=== PATIENT | male | born 1980 | race Caucasian/White ===

== ENCOUNTER 2019-05-04 15:07 | Emergency (ER) | payer SELFPAY ==
[2019-05-04] MEDS ORDERED: LIDOCAINE 1% MPF 30 ML VIAL ONE (16:37)
--- NOTE | 2019-05-04 17:26 | ER ---
Nurse's Notes [facility] Name: Pato Nazario Age: 38 yrs Sex: Male : 1980 Arrival Date: 05/04/2019 Time: 15:11 Bed 19 Private MD: Diagnosis: Cutaneous abscess of abdominal wall Presentation: 05/04 15:12 Presenting complaint: Abscess on abdomen x 3 days. Transition of care: patient was not hb received from another setting of care. Onset of symptoms was May 01, 2019. Risk Assessment: Do you want to hurt yourself or someone else? Patient reports no desire to harm self or others. Initial Sepsis Screen: Does the patient meet any 2 criteria? No. Patient's initial sepsis screen is negative. Does the patient have a suspected source of infection? No. Patient's initial sepsis screen is negative. Care prior to arrival: None. 15:12 Method Of Arrival: Ambulatory hb 15:12 Acuity: ADARSH 4 hb Historical: - Allergies: 15:13 No Known Allergies; hb - Home Meds: 15:13 None [Active]; hb - PMHx: 15:13 None; hb - PSHx: 15:13 None; hb - Immunization history:: Adult Immunizations up to date. - Social history:: Smoking status: Patient/guardian denies using tobacco. - Ebola Screening: : No symptoms or risks identified at this time. Screenin:10 Abuse screen: Denies threats or abuse. Denies injuries from another. Nutritional ca1 screening: No deficits noted. Tuberculosis screening: No symptoms or risk factors identified. Fall Risk None identified. Assessment: 16:10 General: Appears in no apparent distress. comfortable, Behavior is calm, cooperative, ca1 appropriate for age. Pain: Complains of pain in abdomen Pain currently is 7 out of 10 on a pain scale. Quality of pain is described as burning, Pain began 2-3 days ago. Is continuous. Neuro: Level of Consciousness is awake, alert, obeys commands, Oriented to person, place, time, situation, Appropriate for age. GI: No deficits noted. No signs and/or symptoms were reported involving the gastrointestinal system. Derm: Skin is intact, is healthy with good turgor, Skin is pink, warm \T\ dry. Abscess located on left upper quadrant is dime sized, has no drainage, is hot to touch, is red, is raised. Musculoskeletal: Circulation, motion, and sensation intact. Capillary refill < 3 seconds, Range of motion: intact in all extremities. 17:04 Reassessment: Patient appears in no apparent distress at this time. Patient is alert, ca1 oriented x 3, equal unlabored respirations, skin warm/dry/pink. Vital Signs: 15:13 BP 130 / 85; Pulse 76; Resp 16; Temp 97.9; Pulse Ox 100% on R/A; Weight 72.57 kg; hb Height 6 ft. (182.88 cm); Pain 6/10; 17:04 BP 121 / 76; Pulse 81; Resp 16 S; Pulse Ox 100% on R/A; ca1 15:13 Body Mass Index 21.70 (72.57 kg, 182.88 cm) hb ED Course: 15:11 Patient arrived in ED. mr 15:12 Triage completed. hb 15:13 Arm band placed on. hb 16:03 Niesha Ochoa RN is Primary Nurse. ca1 16:04 Yeison Nelson PA is PHCP. [facility] 16:04 Yung Bhandari MD is Attending Physician. [facility] 16:10 Patient has correct armband on for positive identification. Bed in low position. Call ca1 light in reach. Side rails up X 1. Pulse ox on. NIBP on. 16:10 Patient did not have IV access during this emergency room visit. ca1 17:03 Assist provider with I \T\ D: of an abscess on abdomen above the umbilical area Set up ca1 I\T\D tray. Performed by Yeison ZHAO Wound packed. iodoform gauze, Dressing with Neosporin and 4X4s, tape Patient tolerated well. 17:22 Sylvain Freed MD is Referral Physician. [facility] Administered Medications: 16:58 Drug: Lidocaine (1 %) 20 ml {Note: by PAVEL Latham.} Volume: 20 ml; Route: Infiltration; ca1 Outcome: 17:22 Discharge ordered by . [facility] 17:50 Discharged to home ambulatory. ca1 17:50 Condition: stable 17:50 Discharge instructions given to patient, Instructed on discharge instructions, follow up and referral plans. wound care, Demonstrated understanding of instructions, follow-up care, medications, wound care, Prescriptions given X 2. 17:57 Patient left the ED. ca1 Signatures: Yeison Nelson PA PA jmm Rivera, mr Mor, Mary Ann, RN RN hb AcNiesha aguilar, RN RN ca1
--- NOTE | 2019-05-04 17:27 | EDPHYS ---
Physician Documentation [facility] Name: Pato Nazario Age: 38 yrs Sex: Male : 1980 Arrival Date: 05/04/2019 Time: 15:11 Bed 19 Private MD: ED Physician Yung Bhandari HPI: 05/04 16:29 This 38 yrs old Male presents to ER via Ambulatory with complaints of Insect jmm Bite. 16:29 The patient presents with cellulitis of the abdomen. Onset: The symptoms/episode jmm began/occurred gradually, 3 day(s) ago. Possible cause(s): unknown. Associated signs and symptoms: Pertinent negatives: fever. Modifying factors: the symptoms are alleviated by nothing, the symptoms are aggravated by nothing. This is a 38 year old male with no chronic medical conditions that presents to the ED with complaints of redness and swelling beginning 3 days ago. Patient denies fever or chills. . Historical: - Allergies: 15:13 No Known Allergies; hb - Home Meds: 15:13 None [Active]; hb - PMHx: 15:13 None; hb - PSHx: 15:13 None; hb - Immunization history:: Adult Immunizations up to date. - Social history:: Smoking status: Patient/guardian denies using tobacco. - Ebola Screening: : No symptoms or risks identified at this time. ROS: 16:29 Constitutional: Negative for fever, chills, and weight loss, Cardiovascular: Negative jmm for chest pain, palpitations, and edema, Respiratory: Negative for shortness of breath, cough, wheezing, and pleuritic chest pain. 16:29 Skin: Positive for abscess. 16:29 All other systems are negative. Exam: 16:29 Constitutional: This is a well developed, well nourished patient who is awake, alert, jmm and in no acute distress. Head/Face: atraumatic. Eyes: EOMI, no conjunctival erythema appreciated ENT: Moist Mucus Membranes Neck: Trachea midline, Supple Chest/axilla: Normal chest wall appearance and motion. Cardiovascular: Regular rate and rhythm. No edema appreciated Respiratory: Normal respirations, no respiratory distress appreciated 16:29 Abdomen/GI: abscess noted to the abdomen. 16:29 Skin: erythema and swelling noted to the mid abdomen. 16:29 Neuro: Motor: is normal. 16:29 Psych: Behavior/mood is pleasant, cooperative. Vital Signs: 15:13 BP 130 / 85; Pulse 76; Resp 16; Temp 97.9; Pulse Ox 100% on R/A; Weight 72.57 kg; hb Height 6 ft. (182.88 cm); Pain 6/10; 17:04 BP 121 / 76; Pulse 81; Resp 16 S; Pulse Ox 100% on R/A; ca1 15:13 Body Mass Index 21.70 (72.57 kg, 182.88 cm) hb Procedures: 17:18 I \T\ D: Incision and drainage was performed for an abscess of the left upper quadrant jmm Prepped with Anesthetized with 5 ml's 1% Lidocaine. Incised with #11 blade. Drained large amount purulent fluid. Packed with iodoform gauze, Dressing: sterile 4x4 gauze, the patient tolerated the procedure well. MDM: 16:06 Patient medically screened. [facility] 17:18 Data reviewed: vital signs, nurses notes. [facility] 17:20 Data reviewed:. Counseling: I had a detailed discussion with the patient and/or [facility] guardian regarding: the historical points, exam findings, and any diagnostic results supporting the discharge/admit diagnosis, the need for outpatient follow up, to return to the emergency department if symptoms worsen or persist or if there are any questions or concerns that arise at home. ED course: Patient is alert and non toxic in appearance in the ED. patient given strict return precautions. patient understood and agrees with the plan of care. . 05/04 16:24 Order name: Incision \T\ Drainage Setup; Complete Time: 16:30 [facility] Administered Medications: 16:58 Drug: Lidocaine (1 %) 20 ml {Note: by PA. Yeison} Volume: 20 ml; Route: Infiltration; ca1 Disposition: 18:48 Co-signature as Attending Physician, Yung Bhandari MD I agree with the assessment and [facility] plan of care. Disposition: 05/04/19 17:22 Discharged to Home. Impression: Cutaneous abscess of abdominal wall. - Condition is Stable. - Discharge Instructions: Skin Abscess. - Prescriptions for Ultracet 37.5- 325 mg Oral Tablet - take 1 tablet by ORAL route every 6 hours - for up to 5 days; do not exceed 8 tablets per day.; 20 tablet. Bactrim DS 800- 160 mg Oral Tablet - take 1 tablet by ORAL route every 12 hours for 10 days; 20 tablet. - Medication Reconciliation Form, Thank You Letter, Antibiotic Education, Prescription Opioid Use form. - Follow up: Sylvain Freed MD; When: 2 - 3 days; Reason: Recheck today's complaints, Continuance of care, Re-evaluation by your physician. Signatures: Yung Bhandari MD MD cha Mickail, Joel, PA PA jmm Baxter, Heather, ZOYA RN Niesha Ochoa RN RN ca1 Corrections: (The following items were deleted from the chart) 17:57 17:22 05/04/2019 17:22 Discharged to Home. Impression: Cutaneous abscess of abdominal ca1 wall. Condition is Stable. Forms are Medication Reconciliation Form, Thank You Letter, Antibiotic Education, Prescription Opioid Use. Follow up: Sylvain Freed; When: 2 - 3 days; Reason: Recheck today's complaints, Continuance of care, Re-evaluation by your physician. analy
[2019-05-04 18:59] VITALS: BP 121/76; O2SAT 100
[2019-05-04 23:45] VITALS: TEMP 97.9
== END 2019-05-04 17:57 | disposition home or self-care (01) ==
LOC: ER 15:07
PROC: 0H97XZZ Drainage of Abdomen Skin, External Approach (ICD-10-PCS; principal; 2019-05-04)
DX: L02.211 Cutaneous abscess of abdominal wall (principal)
CPT/HCPCS: 99284